=== PATIENT | female | born 1985 | race Caucasian/White ===

== ENCOUNTER 2016-09-22 18:46 | Emergency (ER) | payer SELFPAY ==
[2016-09-22 19:07] VITALS: BP 145/101
[2016-09-22] MEDS ORDERED: IBUPROFEN 600 MG TABLET PO ONE (20:38)
[2016-09-22] MEDS ORDERED: HYDROcodone/ACETAMINOPHEN 1 EACH TABLET PO ONE (20:38)
[2016-09-22] MEDS ORDERED: IBUPROFEN 600 MG TABLET ONE (20:42)
[2016-09-22] MEDS ORDERED: HYDROcodone/ACETAMINOPHEN 1 EACH TABLET ONE (20:42)
--- NOTE | 2016-09-22 20:49 | ERNOTE ---
Lower Extremity HPI - Narrative Date of Service: 09/22/16 - General Lower Extremities Pain: ankle: right Time Seen by Provider: 09/22/16 20:27 Source: patient, RN notes reviewed Exam Limitations: no limitations - Immun/Allergies/Home Medications Immunizations: IMMUNIZATION HX Immunizations Up to Date Yes History of Influenza Vaccine Yes Hx Pneumococcal Vaccination No Allergies/Adverse Reactions: Allergies Allergy/AdvReac Type Severity Reaction Status Date / Time codeine Allergy Verified 09/22/16 19:04 Home Medications: HOME MEDICATIONS NK [No Home Medication] 09/22/16 [Last Taken Unknown] - History of Present Illness Narrative: 31 y/o female to ED for right ankle injury. Twisted ankle when she stepped in a hole while walking in the park. Occurred: this evening Method of Injury: Reports: twisted Other Injuries: Reports: none Subsequent Symptoms: Denies: sensory loss, numbness, motor loss Prior Treament: Reports: similar symptoms before Review of Systems - Review of Systems Constitutional: Present: no symptoms reported EYE: Present: no symptoms reported ENT: Present: no symptoms reported Respiratory: Present: no symptoms reported Cardiology: Present: no symptoms reported Gastrointestinal/Abdominal: Present: no symptoms reported Genitourinary: Present: no symptoms reported Musculoskeletal: Present: joint pain, joint swelling Skin: Absent: lesions, lumps, change in color Neurological: Absent: weakness, numbness, tingling Endocrine: Present: no symptoms reported Hematologic/Lymphatic: Present: no symptoms reported Psych: Present: no symptoms reported - Patient's Past Medical History Patient History - Medical: Anxiety, Bipolar, Depression Patient History - Cardiac/Respiratory: Pneumonia Patient History - Cancer: Cervical Patient History - Surgical Procedures: Appendectomy, Cholecystectomy, Hysterectomy, T & A, Other Patient History - Other: None - Social History Living Situations: home Abuse History: No History of abuse Psych History: Hx of Anxiety Smoking Status: Current every day smoker Alcohol Use: rarely Drug Use: none - Immunizations Immunizations Up to Date: Yes Hx Pneumococcal Vaccination: No History of Influenza Vaccine: Yes Physical Exam - Physical Exam General Appearance: Present: wd/wn, alert, no apparent distress Respiratory: Present: no respiratory distress, no accessory muscle use Cardiovascular/Chest: Present: normal peripheral pulses Peripheral Pulses: N=norm/S=strong/W=weak/B=bound/A=absent: Dorsalis-pedis (R): Strong Extremity Exam: Present: decreased range of motion - Right ankle, joint swelling - right lateral ankle, tender to palpation, no ecchymosis Neurological Exam: Present: alert, oriented, normal mood/affect, no motor/ sensory deficits Skin Exam: Present: normal color, warm/dry ED Progress - Vital Signs Patient's Vital Signs:: I have reviewed the patient's vital signs. Vital Signs: Vital Signs 09/22/16 19:00 Temperature 36.5 C Pulse Rate 100 Respiratory 18 Rate Blood Pressure 145/101 O2 Sat by Pulse 98 Oximetry - X-Ray X-Ray #1 X-Ray: ankle Interpretation: Reviewed by me X-ray Comments: Ankle Minimum 3 Views RT * No definable fracture lucency or cortical discontinuity. Well-corticated ossific density posterior to the talus and the lateral image most likely normal variant os trigonum. Joint spaces are in gross normal alignment without subluxation or dislocation. Mild anterolateral soft tissue swelling noted. IMPRESSION: Anterolateral soft tissue swelling of the right ankle without definable fracture. Electronically signed by Mike Swan M.D.. - Progress/Reassessment Chief Complaint: Lower Extremity Pain/ Injury Departure Clinical Impression: Ankle sprain Qualifiers: Encounter type: initial encounter Involved ligament of ankle: unspecified ligament Laterality: right Qualified Code(s): S93.401A - Sprain of unspecified ligament of right ankle, initial encounter - Departure Disposition: Home self-care Condition: Good Instructions: Ankle Sprain Additional Instructions: Ice and elevate HANNAH wrap for support Use crutches as needed Ibuprofen 600 mg every 6 hours as needed for pain - take with food
== END 2016-09-22 21:01 | disposition home or self-care (01) ==
LOC: ER 18:46
DX: S93.401A Sprain of unspecified ligament of right ankle, initial encounter (principal); Z72.0 Tobacco use; Y93.01 Activity, walking, marching and hiking